=== PATIENT | male | born 1975 ===

== ENCOUNTER 2023-03-18 12:40 | Outpatient (CLI) | payer OTHER | END 2023-03-18 12:52 | disposition home or self-care (01) | LOC: RAD 12:40 | PROVIDERS: ATTEND General Practice | DX: M75.31 Calcific tendinitis of right shoulder (principal) ==

== ENCOUNTER 2023-03-19 11:59 | Outpatient (CLI) | payer OTHER | END 2023-03-19 12:14 | disposition home or self-care (01) | LOC: MRI 11:59 | PROVIDERS: ATTEND General Practice | DX: M75.121 Complete rotator cuff tear or rupture of right shoulder, not specified as traumatic (principal) | CPT/HCPCS: 73218 ==